=== PATIENT | male | born 1935 | race Caucasian/White ===

== ENCOUNTER → 2016-10-12 | Outpatient (CLI) | payer MEDICARE, OTHER ==
[~2016-10-12] VITALS: Ht 160 cm; Wt 111.6 kg
[~2016-10-12] MED LIST: ADV500 IH; APIX5TAB PO; BENZONATATE PO; BUME1TAB30 PO; COMBIH; DARI15TA PO; DILT60 PO; FINA5TAB41 PO; INSLAN SQ; LEVO50TA4 PO; LISI-660 PO; MAGN400T40 PO; METO50 PO; MONT10TA21 PO; MULT-1203 PO; RABE20TA60 PO; SITA1TBM4 PO; TAMS0.4C32 PO; TIOT185 IH
[2016-10-12 10:52] VITALS: BP 128/73
== END | disposition home or self-care (01) ==
LOC: SRCNTR 10:48
PROVIDERS: ATTEND Internal Medicine Critical Care Medicine
DX: J44.9 Chronic obstructive pulmonary disease, unspecified (principal); G47.33 Obstructive sleep apnea (adult) (pediatric); I10 Essential (primary) hypertension; E11.9 Type 2 diabetes mellitus without complications; D29.1 Benign neoplasm of prostate
CPT/HCPCS: G0463

== ENCOUNTER → 2016-11-16 | Outpatient (CLI) | payer MEDICARE, OTHER ==
[~2016-11-16] VITALS: Ht 160 cm; Wt 108.0 kg
[~2016-11-16] MED LIST changes: +RABE20 PO; -RABE20TA60 PO
[2016-11-16 11:30] VITALS: BP 129/63
== END | disposition home or self-care (01) ==
LOC: SRCNTR 11:21
PROVIDERS: ATTEND Internal Medicine Critical Care Medicine
DX: J44.9 Chronic obstructive pulmonary disease, unspecified (principal); I10 Essential (primary) hypertension; G47.33 Obstructive sleep apnea (adult) (pediatric); E11.9 Type 2 diabetes mellitus without complications; D29.1 Benign neoplasm of prostate
CPT/HCPCS: G0463

== ENCOUNTER → 2017-01-18 | Outpatient (CLI) | payer MEDICARE, OTHER ==
[~2017-01-18] VITALS: Ht 162.6 cm; Wt 106.0 kg
[~2017-01-18] MED LIST changes: -RABE20 PO; +RABE20TA60 PO
[2017-01-18 11:29] VITALS: BP 109/61
== END | disposition home or self-care (01) ==
LOC: SRCNTR 11:19
PROVIDERS: ATTEND Internal Medicine Critical Care Medicine
DX: G47.33 Obstructive sleep apnea (adult) (pediatric) (principal); J44.1 Chronic obstructive pulmonary disease with (acute) exacerbation; I10 Essential (primary) hypertension; E11.9 Type 2 diabetes mellitus without complications; D29.1 Benign neoplasm of prostate; E66.01 Morbid (severe) obesity due to excess calories
CPT/HCPCS: G0463

== ENCOUNTER → 2017-02-26 | Outpatient (CLI) | payer MEDICARE, OTHER ==
[~2017-02-26] VITALS: Ht 165.1 cm; Wt 106.9 kg
[2017-02-26 11:29] VITALS: BP 139/57
== END | disposition home or self-care (01) ==
LOC: SRCNTR 11:19
PROVIDERS: ATTEND Internal Medicine Critical Care Medicine
DX: I10 Essential (primary) hypertension (principal); G47.33 Obstructive sleep apnea (adult) (pediatric); J44.1 Chronic obstructive pulmonary disease with (acute) exacerbation; E11.9 Type 2 diabetes mellitus without complications; D29.1 Benign neoplasm of prostate; Z87.891 Personal history of nicotine dependence
CPT/HCPCS: G0463

== ENCOUNTER → 2017-04-05 | Outpatient (CLI) | payer MEDICARE, OTHER ==
[~2017-04-05] VITALS: Ht 165.1 cm; Wt 106.4 kg
[2017-04-05 11:26] VITALS: BP 120/69
== END | disposition home or self-care (01) ==
LOC: SRCNTR 11:11
PROVIDERS: ATTEND Internal Medicine Critical Care Medicine
DX: E11.9 Type 2 diabetes mellitus without complications (principal); G47.33 Obstructive sleep apnea (adult) (pediatric); J44.1 Chronic obstructive pulmonary disease with (acute) exacerbation; I10 Essential (primary) hypertension; D29.1 Benign neoplasm of prostate; E66.01 Morbid (severe) obesity due to excess calories
CPT/HCPCS: G0463

== ENCOUNTER → 2017-06-07 | Outpatient (CLI) | payer MEDICARE, OTHER ==
[~2017-06-07] VITALS: Ht 165.1 cm; Wt 109.4 kg
[~2017-06-07] MED LIST changes: +BUME1TAB17 PO; -BUME1TAB30 PO
[2017-06-07 11:00] VITALS: BP 120/74
== END | disposition home or self-care (01) ==
LOC: SRCNTR 10:26
PROVIDERS: ATTEND Internal Medicine Critical Care Medicine
DX: G47.33 Obstructive sleep apnea (adult) (pediatric) (principal); J44.1 Chronic obstructive pulmonary disease with (acute) exacerbation; I10 Essential (primary) hypertension; E11.9 Type 2 diabetes mellitus without complications; D29.1 Benign neoplasm of prostate; Z87.891 Personal history of nicotine dependence
CPT/HCPCS: G0463

== ENCOUNTER → 2017-09-10 | Outpatient (CLI) | payer MEDICARE, OTHER ==
[~2017-09-10] VITALS: Ht 162.6 cm; Wt 108.0 kg
[2017-09-10 10:54] VITALS: BP 153/87
== END | disposition home or self-care (01) ==
LOC: SRCNTR 10:45
PROVIDERS: ATTEND Internal Medicine Critical Care Medicine
DX: J44.1 Chronic obstructive pulmonary disease with (acute) exacerbation (principal); G47.33 Obstructive sleep apnea (adult) (pediatric); I10 Essential (primary) hypertension; E11.9 Type 2 diabetes mellitus without complications; D29.1 Benign neoplasm of prostate; Z90.49 Acquired absence of other specified parts of digestive tract
CPT/HCPCS: G0463

== ENCOUNTER → 2017-10-02 | Outpatient (CLI) | payer MEDICARE, OTHER ==
[~2017-10-02] VITALS: Ht 165.1 cm; Wt 108.0 kg
[~2017-10-02] MED LIST changes: +IPRNEB IH
[2017-10-02 10:59] VITALS: BP 128/62
== END | disposition home or self-care (01) ==
LOC: SRCNTR 10:40
PROVIDERS: ATTEND Internal Medicine Critical Care Medicine
DX: J44.1 Chronic obstructive pulmonary disease with (acute) exacerbation (principal); G47.33 Obstructive sleep apnea (adult) (pediatric); I10 Essential (primary) hypertension; E11.9 Type 2 diabetes mellitus without complications; D29.1 Benign neoplasm of prostate
CPT/HCPCS: G0463

== ENCOUNTER → 2017-12-06 | Outpatient (CLI) | payer MEDICARE, OTHER ==
[~2017-12-06] VITALS: Ht 165.1 cm; Wt 105.0 kg
[2017-12-06 12:08] VITALS: BP 110/76
== END | disposition home or self-care (01) ==
LOC: SRCNTR 12:00
PROVIDERS: ATTEND Internal Medicine Critical Care Medicine
DX: J44.1 Chronic obstructive pulmonary disease with (acute) exacerbation (principal); G47.33 Obstructive sleep apnea (adult) (pediatric); I10 Essential (primary) hypertension; E11.9 Type 2 diabetes mellitus without complications; D29.1 Benign neoplasm of prostate; E66.01 Morbid (severe) obesity due to excess calories
CPT/HCPCS: G0463

== ENCOUNTER → 2018-03-21 | Outpatient (CLI) | payer MEDICARE, OTHER ==
[~2018-03-21] VITALS: Ht 160 cm; Wt 104.5 kg
[2018-03-21 13:52] VITALS: BP 108/64
== END | disposition home or self-care (01) ==
LOC: SRCNTR 13:49
PROVIDERS: ATTEND Internal Medicine Critical Care Medicine
DX: J44.1 Chronic obstructive pulmonary disease with (acute) exacerbation (principal); I10 Essential (primary) hypertension; E66.01 Morbid (severe) obesity due to excess calories; E11.9 Type 2 diabetes mellitus without complications; D29.1 Benign neoplasm of prostate; G47.33 Obstructive sleep apnea (adult) (pediatric)
CPT/HCPCS: G0463

== ENCOUNTER → 2018-04-23 | Outpatient (CLI) | payer MEDICARE, OTHER ==
[~2018-04-23] VITALS: Ht 160 cm; Wt 100.0 kg
[2018-04-23 14:29] VITALS: BP 117/54
== END | disposition home or self-care (01) ==
LOC: SRCNTR 14:25
PROVIDERS: ATTEND Internal Medicine Critical Care Medicine
DX: J44.1 Chronic obstructive pulmonary disease with (acute) exacerbation (principal); G47.33 Obstructive sleep apnea (adult) (pediatric); I10 Essential (primary) hypertension; E11.9 Type 2 diabetes mellitus without complications; D29.1 Benign neoplasm of prostate; E66.01 Morbid (severe) obesity due to excess calories
CPT/HCPCS: G0463

== ENCOUNTER → 2018-05-24 | Outpatient (CLI) | payer MEDICARE, OTHER ==
[~2018-05-24] VITALS: Ht 160 cm; Wt 101.0 kg
[2018-05-24 13:26] VITALS: BP 111/57
== END | disposition home or self-care (01) ==
LOC: SRCNTR 13:25
PROVIDERS: ATTEND Internal Medicine Critical Care Medicine
DX: J44.1 Chronic obstructive pulmonary disease with (acute) exacerbation (principal); G47.33 Obstructive sleep apnea (adult) (pediatric); I10 Essential (primary) hypertension; E11.9 Type 2 diabetes mellitus without complications; D29.1 Benign neoplasm of prostate
CPT/HCPCS: G0463

== ENCOUNTER → 2018-06-28 | Outpatient (CLI) | payer MEDICARE, OTHER ==
[~2018-06-28] VITALS: Ht 160 cm; Wt 103.2 kg
[2018-06-28 12:36] VITALS: BP 111/58
== END | disposition home or self-care (01) ==
LOC: SRCNTR 09:47
PROVIDERS: ATTEND Internal Medicine Critical Care Medicine
DX: J44.9 Chronic obstructive pulmonary disease, unspecified (principal)
CPT/HCPCS: 96372; G0463

== ENCOUNTER → 2018-07-23 | Outpatient (CLI) | payer MEDICARE, OTHER ==
[~2018-07-23] VITALS: Ht 160 cm; Wt 103.5 kg
[2018-07-23 13:29] VITALS: BP 108/64
== END | disposition home or self-care (01) ==
LOC: SRCNTR 13:25
PROVIDERS: ATTEND Internal Medicine Critical Care Medicine
DX: J44.1 Chronic obstructive pulmonary disease with (acute) exacerbation (principal); G47.33 Obstructive sleep apnea (adult) (pediatric); J96.11 Chronic respiratory failure with hypoxia; I10 Essential (primary) hypertension; E11.9 Type 2 diabetes mellitus without complications; D29.1 Benign neoplasm of prostate
CPT/HCPCS: G0463

== ENCOUNTER → 2018-08-20 | Outpatient (CLI) | payer MEDICARE, OTHER | END | disposition home or self-care (01) | LOC: RADPV 12:29 | PROVIDERS: ATTEND Internal Medicine Critical Care Medicine | DX: R60.0 Localized edema (principal); M79.89 Other specified soft tissue disorders | CPT/HCPCS: 93970 ==

== ENCOUNTER → 2018-08-28 | Outpatient (CLI) | payer MEDICARE, OTHER ==
[~2018-08-28] VITALS: Ht 160 cm; Wt 103.0 kg
[2018-08-28 10:08] VITALS: BP 130/59
== END | disposition home or self-care (01) ==
LOC: SRCNTR 09:28
PROVIDERS: ATTEND Internal Medicine Critical Care Medicine
DX: J45.909 Unspecified asthma, uncomplicated (principal)
CPT/HCPCS: G0463

== ENCOUNTER → 2018-12-31 | Outpatient (CLI) | payer MEDICARE, OTHER ==
[~2018-12-31] VITALS: Ht 160 cm; Wt 57.0 kg
[2018-12-31 14:04] VITALS: BP 94/44
== END | disposition home or self-care (01) ==
LOC: SRCNTR 13:50
PROVIDERS: ATTEND Internal Medicine Critical Care Medicine
DX: J44.1 Chronic obstructive pulmonary disease with (acute) exacerbation (principal); I10 Essential (primary) hypertension; E11.9 Type 2 diabetes mellitus without complications; D29.1 Benign neoplasm of prostate; G47.33 Obstructive sleep apnea (adult) (pediatric)
CPT/HCPCS: G0463

== ENCOUNTER → 2019-06-24 | Outpatient (CLI) | payer MEDICARE, OTHER ==
[~2019-06-24] MED LIST changes: -BUME1TAB17 PO; +BUME1TAB34 PO; +TAMS-13 PO; -TAMS0.4C32 PO
== END | disposition home or self-care (01) ==
LOC: RADPV 08:58
PROVIDERS: ATTEND Internal Medicine Critical Care Medicine
DX: J44.1 Chronic obstructive pulmonary disease with (acute) exacerbation (principal); I70.0 Atherosclerosis of aorta

== ENCOUNTER → 2019-08-20 | Outpatient (CLI) | payer MEDICARE, OTHER ==
[~2019-08-20] VITALS: Ht 147.3 cm; Wt 99.5 kg
[2019-08-20 10:23] VITALS: BP 101/58
== END | disposition home or self-care (01) ==
LOC: SRCNTR 10:20
PROVIDERS: ATTEND Internal Medicine Critical Care Medicine
DX: J44.9 Chronic obstructive pulmonary disease, unspecified (principal); I10 Essential (primary) hypertension; E11.9 Type 2 diabetes mellitus without complications; E66.01 Morbid (severe) obesity due to excess calories; G47.33 Obstructive sleep apnea (adult) (pediatric); D29.1 Benign neoplasm of prostate; Z87.891 Personal history of nicotine dependence
CPT/HCPCS: G0463

== ENCOUNTER → 2019-08-26 | Outpatient (CLI) | payer MEDICARE, OTHER | END | disposition home or self-care (01) | LOC: RADMN 09:09 | PROVIDERS: ATTEND Internal Medicine Critical Care Medicine | DX: R91.1 Solitary pulmonary nodule (principal); J90 Pleural effusion, not elsewhere classified; J98.11 Atelectasis; R16.0 Hepatomegaly, not elsewhere classified | CPT/HCPCS: 71250 ==

== ENCOUNTER → 2019-09-19 | Outpatient (CLI) | payer MEDICARE, OTHER ==
[~2019-09-19] VITALS: Ht 154.9 cm; Wt 102.0 kg
[~2019-09-19] MED LIST changes: +FINA-27 PO; -FINA5TAB41 PO
[2019-09-19 09:09] VITALS: BP 134/69
== END | disposition home or self-care (01) ==
LOC: SRCNTR 09:08
PROVIDERS: ATTEND Internal Medicine Critical Care Medicine
DX: J44.9 Chronic obstructive pulmonary disease, unspecified (principal); G47.33 Obstructive sleep apnea (adult) (pediatric); E78.5 Hyperlipidemia, unspecified
CPT/HCPCS: G0463

== ENCOUNTER → 2020-08-10 | Outpatient (CLI) | payer MEDICARE, OTHER ==
[~2020-08-10] VITALS: Ht 152.4 cm; Wt 101.0 kg
[~2020-08-10] MED LIST changes: +MONT-35 PO; -MONT10TA21 PO
[2020-08-10 10:18] VITALS: BP 135/69
== END | disposition home or self-care (01) ==
LOC: SRCNTR 10:07
PROVIDERS: ATTEND Internal Medicine Critical Care Medicine
DX: R05 Cough (principal); I10 Essential (primary) hypertension; J44.9 Chronic obstructive pulmonary disease, unspecified; E11.9 Type 2 diabetes mellitus without complications; E66.01 Morbid (severe) obesity due to excess calories; Z90.49 Acquired absence of other specified parts of digestive tract; Z96.652 Presence of left artificial knee joint; Z87.891 Personal history of nicotine dependence; Z80.0 Family history of malignant neoplasm of digestive organs; Z79.899 Other long term (current) drug therapy; Z63.8 Other specified problems related to primary support group
CPT/HCPCS: G0463; Z7500

== ENCOUNTER → 2020-10-27 | Outpatient (CLI) | payer MEDICARE, OTHER ==
[~2020-10-27] VITALS: Ht 154.9 cm; Wt 100.8 kg
[~2020-10-27] MED LIST changes: -LISI-660 PO; +LISI-892 PO
[2020-10-27 10:44] VITALS: BP 125/64
== END | disposition home or self-care (01) ==
LOC: SRCNTR 10:09
PROVIDERS: ATTEND Internal Medicine Critical Care Medicine
DX: I10 Essential (primary) hypertension (principal); J44.9 Chronic obstructive pulmonary disease, unspecified; E11.9 Type 2 diabetes mellitus without complications; E66.01 Morbid (severe) obesity due to excess calories
CPT/HCPCS: G0463

== ENCOUNTER → 2022-04-24 | Outpatient (CLI) | payer MEDICARE, OTHER ==
[~2022-04-24] VITALS: Ht 144.8 cm; Wt 76.5 kg
[~2022-04-24] MED LIST changes: -DILT60 PO; +DILT60TA4 PO
[2022-04-24 16:00] VITALS: BP 133/53
== END | disposition home or self-care (01) ==
LOC: SRCNTR 09:53
PROVIDERS: ATTEND Internal Medicine Critical Care Medicine
DX: I10 Essential (primary) hypertension (principal); E11.9 Type 2 diabetes mellitus without complications; J44.1 Chronic obstructive pulmonary disease with (acute) exacerbation; E66.9 Obesity, unspecified; N40.0 Benign prostatic hyperplasia without lower urinary tract symptoms; G47.33 Obstructive sleep apnea (adult) (pediatric); J96.11 Chronic respiratory failure with hypoxia
CPT/HCPCS: G0463; Z7500

== ENCOUNTER → 2022-04-24 | Outpatient (CLI) | payer MEDICARE, OTHER | END | disposition home or self-care (01) | LOC: RADMN 11:45 | PROVIDERS: ATTEND Internal Medicine Critical Care Medicine | DX: J98.11 Atelectasis (principal); M47.814 Spondylosis without myelopathy or radiculopathy, thoracic region; M19.011 Primary osteoarthritis, right shoulder; Q25.46 Tortuous aortic arch; I70.0 Atherosclerosis of aorta; J44.1 Chronic obstructive pulmonary disease with (acute) exacerbation | CPT/HCPCS: 71046 ==